=== PATIENT | male | born 1935 | race Caucasian/White ===

== ENCOUNTER → 2020-01-18 07:54 | Outpatient (CLI) | payer OTHER, SELFPAY ==
[2020-01-18 09:05] LABS: Add Manual Diff / Slide Review NO; Basophils Absolute Auto 0 /uL (0-100); Basophils Percent Auto 0.7 % (0-2); Eosinophils Absolute Auto 100 /uL (0-450); Eosinophils Percent Auto 1.8 % (2-4); Hematocrit 30.1 % (41-53); Hemoglobin 10.3 g/dL (13.5-17.5); Lymphocytes Absolute Auto 500 /uL (1100-4500); Lymphocytes Percent Auto 8.2 % (25-40); Mean Corpuscular HGB Conc 34.3 % (30-36); Mean Corpuscular Hemoglobin 31.6 PG (26-34); Monocytes Absolute Auto 600 /uL (0-900); Monocytes Percent Auto 9.2 % (3-14); Neutrophils Absolute Auto 5000 /uL (1500-7000); Neutrophils Percent Auto 80.1 % (50-75); Platelet Count 452 X10^3/uL (150-400); Red Blood Cell Count 3.27 X10^6/uL (4.5-5.9); White Blood Cell Count 6.2 X10^3/uL (4.5-11.0)
[2020-01-18 09:49] LABS: BUN Creatinine Ratio 23.8 (6-22); Blood Urea Nitrogen 29 mg/dL (9-20); Calcium 9.8 mg/dL (8.4-10.2); Carbon Dioxide 23 mmol/L (22-32); Chloride 109 mmol/L (98-107); Cholesterol 164 mg/dL (140-199); Estimated Glomerular Filt Rate 56.6 mL/min (>60); Glucose 134 mg/dL (80-110); HDL Cholesterol 31 mg/dL (40-60); HEMOLYSIS < 15 (0-50); Hemoglobin A1C% w Est Avg Glu 6.3 % (4.0-6.0); LDL Cholesterol Calculated 99 mg/dL (<100); Potassium 4.9 mmol/L (3.4-5.1); Sodium 139 mmol/L (137-145); Triglycerides 170 mg/dL (35-150)
[2020-01-18 10:19] LABS: Prostate Specific Antigen Scrn < 0.064 ng/mL (0.1-4.0)
== END ==
PROVIDERS: PCP Internal Medicine; Referring Provider Anesthesiology; Visit Provider Anesthesiology
DX: I10 Essential (primary) hypertension (principal); Z12.5 Encounter for screening for malignant neoplasm of prostate
CPT/HCPCS: 36415; 80048; 80061; 83036; 84550; 85025; G0103

== ENCOUNTER → 2020-01-21 11:01 | Outpatient (CLI) | payer OTHER, SELFPAY ==
[2020-01-21 12:34] LABS: Reticulocyte Count, Percent 1.2 % (0.87-2.60)
[2020-01-21 12:59] LABS: Erythrocyte Sedimentation Rate 62 MM/HR (0-15)
[2020-01-21 13:13] LABS: HEMOLYSIS < 15 (0-50); Iron 99 ug/dL (49-181)
[2020-01-21 13:19] LABS: Lactate Dehydrogenase 895 U/L (313-618); Uric Acid 6.9 mg/dL (3.5-8.5)
[2020-01-21 13:20] LABS: C-Reactive Protein Quant < 0.5 mg/dL (<1.0)
[2020-01-21 13:24] LABS: Percent Iron Saturation 31 % (20-50); Total Iron Binding Capacity 318 ug/dL (261-462); Transferrin 225 mg/dL (206-381)
[2020-01-21 13:48] LABS: TSH w/ Reflex to FT4 2.79 uIU/mL (0.47-4.68)
[2020-01-21 13:50] LABS: Ferritin 34 ng/mL (18-464)
[2020-01-21 14:04] LABS: Vitamin B12 210 pg/mL (239-931)
[2020-01-22 05:10] LABS: Haptoglobin 66 mg/dL (38-329)
== END ==
PROVIDERS: PCP Internal Medicine; Referring Provider Internal Medicine; Visit Provider Internal Medicine
DX: D64.9 Anemia, unspecified (principal)
CPT/HCPCS: 36415; 82607; 82728; 83010; 83540; 83550; 83615; 84443; 84550; 85045; 85651; 86140

== ENCOUNTER → 2020-01-31 09:09 | Outpatient (CLI) | payer OTHER, SELFPAY ==
--- NOTE | 2020-01-31 15:15 | DI.ECHO.S_ITS ---
Echocardiogram Report + + :Name: MINERVA PONCE Study Date: 01/31/2020 Height: 74 in : [id number] 210 lb : : Gender: Male BSA: 2.2 m2 : :: 1935 Age: 84 yrs BP: 108/56 mmHg: :Reason For Study: Conduction Disorder, RBBB : :Ordering Physician: Dr. Mix : :Keiko Performed By: Suad Cheung : + + Interpretation Summary The ejection fraction is estimated to be 50-55%. Septal motion is consistent with conduction abnormality. The right ventricle is mildly dilated. There is trace mitral regurgitation. There is mild aortic regurgitation. The ascending aorta is mildly enlarged. Procedure: A two-dimensional transthoracic echocardiogram with color flow and Doppler was performed. There is no prior echocardiogram noted for this patient. The study quality was technically adequate. The patient had a bundle branch block rhythm during the exam. The patient was in normal sinus rhythm during the exam. Left Ventricle: The left ventricle is normal in size. Left ventricular wall thickness is at the upper limits of normal. There is no ventricular septal defect visualized. The ejection fraction is estimated to be 50-55%. There are no obvious focal wall motion abnormalities noted but poor endocardial definition reduces the sensitivity for the detection of such. Septal motion is consistent with conduction abnormality. Diastolic parameters suggest a relaxation abnormality of the left ventricle, consistent with probable normal filling pressures. Right Ventricle: The right ventricle is mildly dilated. The right ventricular systolic function is normal. Atria: The left atrium is mildly dilated. Right atrial size is normal. There is no Doppler evidence for an interatrial shunt. Mitral Valve: There is mild mitral annular calcification. There is trace mitral regurgitation. Aortic Valve: The aortic valve is mildly calcified. There is no aortic valve stenosis. There is mild aortic regurgitation. Tricuspid Valve: The tricuspid valve is normal in structure and function. There is a trace or physiologic amount of tricuspid regurgitation. Right ventricular systolic pressure is estimated to be 26 mmHg plus the clinically estimated CVP which cannot be estimated on this exam. Pulmonic Valve: The pulmonic valve is not well visualized. Great Vessels: The aortic root is normal size. The ascending aorta is mildly enlarged. The aortic arch is mildly enlarged. The inferior vena cava was not visualized. Pericardium/ Pleura There is no pericardial effusion. MMode/2D Measurements & Calculations LVIDd: 4.7 cm LVOT diam: 2.5 cm LVIDs: 2.9 cm Ao root diam: 3.4 cm FS: 38.6 % asc Aorta Diam: 3.5 cm EPSS: 0.77 cm Ao Arch Diam (Prox Trans): 3.3 cm IVSd: 0.96 cm LVPWd: 1.0 cm LV cohn. diameter/BSA (cm/m^2): 2.1 LV sys. diameter/BSA (cm/m^2): 1.3 LA A2 area: 21.3 cm2 RA long axis: 5.5 cm LA A4 area: 25.1 cm2 RA area: 18.9 cm2 LA length (vol): 5.8 cm RA vol: 55.4 ml LA vol: 78.6 ml RA : 25.0 ml/m2 LA vol index: 35.4 ml/m2 RVD1 (basal): 4.6 cm RVD2 (mid): 3.9 cm TAPSE: 2.4 cm Doppler Measurements & Calculations Ao V2 max: 187.4 cm/sec LVOT Max Waldemar: 97.9 cm/sec Ao V2 mean: 141.5 cm/sec LV V1 max P.8 mmHg Ao max P.0 mmHg LV V1 VTI: 18.9 cm Ao mean P.5 mmHg TOMAS(I,D): 2.4 cm2 Ao V2 VTI: 40.6 cm TOMAS(V,D): 2.7 cm2 sev ratio: 0.46 TOMAS indexed to BSA (cm^2/m^2): 1.1 AI P1/2t: 621.3 msec AI dec slope: 194.9 cm/sec2 MV E max waldemar: 73.2 cm/sec TR max waldemar: 256.6 cm/sec MV A max waldemar: 99.8 cm/sec TR max P.3 mmHg MV E/A: 0.73 PA V2 max: 95.4 cm/sec Med Peak E' Waldemar: 5.8 cm/sec PA V2 mean: 68.5 cm/sec E/E' med: 12.6 PA mean P.1 mmHg Lat Peak E' Waldemar: 7.4 cm/sec PA Accel Time: 0.07 sec E/E' lat: 9.9 E/e' average: 11.3 MV dec time: 0.28 sec MV P1/2t: 83.4 msec MV P1/2t max waldemar: 73.3 cm/sec SV(LVOT): 95.8 ml MVA(P1/2t): 2.6 cm2 Reading Physician:03:15 PM
== END ==
PROVIDERS: PCP Internal Medicine; Referring Provider Internal Medicine; Visit Provider Internal Medicine
DX: I35.1 Nonrheumatic aortic (valve) insufficiency (principal); I77.89 Other specified disorders of arteries and arterioles; I45.10 Unspecified right bundle-branch block
CPT/HCPCS: 93306

== ENCOUNTER → 2020-03-25 13:58 | Outpatient (CLI) | payer OTHER, SELFPAY ==
[2020-03-26 19:25] LABS: COVID19 Sendout Not Detected (Not Detect)
== END ==
PROVIDERS: PCP Internal Medicine; Visit Provider Nurse Practitioner
DX: Z11.59 Encounter for screening for other viral diseases (principal)
CPT/HCPCS: 87635

== ENCOUNTER 2020-03-28 06:54 | Day surgery (SDC) | payer OTHER, SELFPAY ==
[2020-03-28] MEDS: PROPARACAINE 0.5% OPHTH SOL 2 DROPS EYE-OP (07:35)
[2020-03-28] MEDS: CATARACT EYE COMPOUND (10 DROPS/SYRINGE) 3 DROPS EYE-OP (07:40)
[2020-03-28 07:42] VITALS: BP 130/72; PULSE 86; RESP 20; TEMP 36.5; O2SAT 96
[2020-03-28 07:44] VITALS: BMI 24.9
--- NOTE | 2020-03-28 08:07 | PM.PREOP ---
Pre-operative Note Interval Note History & Physical reviewed/Exam performed by Physician: Yes Changes to H&P: No
--- NOTE | 2020-03-28 08:07 | PM.OP.1 ---
Operative Date/Time/Diagnoses Pre-op diagnosis: Nuclear cataract right eye Procedure & Clinicians Procedure: Cataract Surgery Same procedure as scheduled: Yes Surgeon: Parker Santos Anesthesia Type: MAC +/- and Sedation Operative Notes Procedure in detail: Patient brought to the operating suite. Tetracaine drops placed in the right eye. Patient was prepped and draped in sterile manner. Wire lid speculum was placed in the eye. Betadine drops were placed on the eye. This was irrigated. Lidocaine jelly was placed on the eye. A paracentesis port was created with a side-port blade. 0.1 mL 1% preservative free lidocaine was injected into the anterior chamber. The anterior chamber was deepened with viscoelastic. 2.6 mm keratome was used to create a temporal clear corneal incision. Cystotome and Utrata forceps were used to create continuous tear capsulorrhexis. Balanced salt solution was used to hydro dissect the nucleus. The phacoemulsification handpiece was inserted and the nucleus was removed using the stop and chop technique. The irrigation aspiration handpiece was inserted and the remaining cortex was removed. Anterior chamber was deepened with viscoelastic. An Berman ZCB00 intraocular lens with a power of 20.5 was injected into the capsular bag. Irrigation aspiration handpiece was inserted and the remaining viscoelastic was removed. Incision was hydrated with balanced salt solution and found to be leak free with pressure with Weck-Dolores sponges. 0.1 mL Vigamox injected anterior chamber. 0.3 mL Kenalog 10 mg was injected subconjunctivally. Lid speculum was removed. The patient left the operating room in excellent condition. Complications: none Post-operative Condition: stable Disposition: same day surgery
[2020-03-28] MEDS: MOXIFLOXACIN INJ 5 MG/ML VIAL EYE-OP (08:29)
[2020-03-28] MEDS: LIDOCAINE JELLY 2% 5 ML 1 APPLIC TOP (08:29)
[2020-03-28] MEDS: CHONDROIDTIN/SOD HYALURONATE 1.05 ML SYRINGE INTRAOCULA (08:29)
[2020-03-28] MEDS: PHENYLEPHRINE/LIDOCAINE VIAL (OR) 0.2 ML EYE-OP (08:29)
[2020-03-28] MEDS: TRIAMCINOLONE 50 MG/5 ML VIAL INJ (08:29)
[2020-03-28] MEDS: BALANCED SALT IRRIG SOLN NO.2 500 ML, EPINEPHrine 1 MG IRR (08:30)
[2020-03-28] MEDS: TETRACAINE 0.5% OPHTH DROPS 4 ML 2 DROPS EYE-OP (08:30)
[2020-03-28 08:43] VITALS: BP 105/60; PULSE 79; RESP 20; TEMP 36.3; O2SAT 98
== END 2020-03-28 08:55 | disposition home or self-care (01) ==
LOC: OR 06:57
PROVIDERS: PCP Internal Medicine; Referring Provider Internal Medicine; Visit Provider Ophthalmology
PROC: (CPT 66984; principal; 2020-03-28 08:15)
DX: H25.11 Age-related nuclear cataract, right eye (principal); E11.9 Type 2 diabetes mellitus without complications; I10 Essential (primary) hypertension; Z79.84 Long term (current) use of oral hypoglycemic drugs
CPT/HCPCS: 66984; J0171; J2250; J3301

== ENCOUNTER → 2020-04-15 08:43 | Outpatient (CLI) | payer OTHER, SELFPAY ==
[2020-04-17 12:34] LABS: COVID19 Sendout Not Detected (Not Detect)
== END ==
PROVIDERS: PCP Internal Medicine; Visit Provider Nurse Practitioner
DX: Z11.59 Encounter for screening for other viral diseases (principal)
CPT/HCPCS: 87635

== ENCOUNTER 2020-04-18 07:33 | Day surgery (SDC) | payer OTHER, SELFPAY ==
[2020-04-18] MEDS: PROPARACAINE 0.5% OPHTH SOL 2 DROPS EYE-OP (07:48)
[2020-04-18 07:51] VITALS: BP 139/73; PULSE 80; RESP 15; TEMP 36.2; O2SAT 97
[2020-04-18 07:55] VITALS: BMI 25.4
[2020-04-18] MEDS: CATARACT EYE COMPOUND (10 DROPS/SYRINGE) 3 DROPS EYE-OP (07:55)
--- NOTE | 2020-04-18 09:20 | P.OP_ITS ---
Operative Date/Time/Diagnoses Pre-op diagnosis: Nuclear Cataract Left eye Post-op diagnosis: same Procedure & Clinicians Same procedure as scheduled: Yes Surgeon: Parker Santos Anesthesia Type: MAC +/- and Sedation Operative Notes Procedure in detail: Patient brought to the operating suite. Tetracaine drops placed in the left eye. Patient was prepped and draped in sterile manner. Wire lid speculum was placed in the eye. Betadine drops were placed on the eye. This was irrigated. Lidocaine jelly was placed on the eye. A paracentesis port was created with a side-port blade. 0.1 mL 1% preservative free lidocaine was injected into the anterior chamber. The anterior chamber was deepened with viscoelastic. 2.6 mm keratome was used to create a temporal clear corneal incision. Cystotome and Utrata forceps were used to create continuous tear capsulorrhexis. Balanced salt solution was used to hydro dissect the nucleus. The phacoemulsification handpiece was inserted and the nucleus was removed using the stop and chop technique. The irrigation aspiration handpiece was inserted and the remaining cortex was removed. Anterior chamber was deepened with viscoe lastic. An Berman ZCB00 intraocular lens with a power of 21.0 was injected into the capsular bag. Irrigation aspiration handpiece was inserted and the remaining viscoelastic was removed. Incision was hydrated with balanced salt solution and found to be leak free with pressure with Weck-Dolores sponges. 0.1 mL Vigamox injected anterior chamber. 0.3 mL Kenalog 10 mg was injected subconjunctivally. Lid speculum was removed. The patient left the operating room in excellent condition. Complications: none Post-operative Condition: stable Disposition: same day surgery
--- NOTE | 2020-04-18 09:20 | PM.PREOP ---
Pre-operative Note Interval Note History & Physical reviewed/Exam performed by Physician: Yes Changes to H&P: No
[2020-04-18] MEDS: CHONDROIDTIN/SOD HYALURONATE 1.05 ML SYRINGE INTRAOCULA (09:42)
[2020-04-18] MEDS: LIDOCAINE JELLY 2% 5 ML 1 APPLIC TOP (09:42)
[2020-04-18] MEDS: PHENYLEPHRINE/LIDOCAINE VIAL (OR) 0.2 ML EYE-OP (09:42)
[2020-04-18] MEDS: MOXIFLOXACIN INJ 5 MG/ML VIAL EYE-OP (09:42)
[2020-04-18] MEDS: TETRACAINE 0.5% OPHTH DROPS 4 ML 2 DROPS EYE-OP (09:43)
[2020-04-18] MEDS: TRIAMCINOLONE 50 MG/5 ML VIAL INJ (09:43)
[2020-04-18] MEDS: BALANCED SALT IRRIG SOLN NO.2 500 ML, EPINEPHrine 1 MG IRR (09:43)
[2020-04-18 10:00] VITALS: BP 115/73; PULSE 81; RESP 12; TEMP 36.3; O2SAT 96
== END 2020-04-18 10:09 | disposition home or self-care (01) ==
PROVIDERS: PCP Internal Medicine; Referring Provider Ophthalmology; Visit Provider Ophthalmology
PROC: (CPT 66984; principal; 2020-04-18 09:15)
DX: H25.12 Age-related nuclear cataract, left eye (principal); E11.9 Type 2 diabetes mellitus without complications; Z79.84 Long term (current) use of oral hypoglycemic drugs; I10 Essential (primary) hypertension
CPT/HCPCS: 66984; J0171; J2250; J3301

== ENCOUNTER → 2020-04-21 09:25 | Outpatient (CLI) | payer OTHER, SELFPAY ==
[2020-04-21 10:18] LABS: Add Manual Diff / Slide Review NO; Basophils Absolute Auto 100 /uL (0-100); Basophils Percent Auto 0.8 % (0-2); Eosinophils Absolute Auto 200 /uL (0-450); Eosinophils Percent Auto 2.9 % (2-4); Hematocrit 29.8 % (41-53); Hemoglobin 10.2 g/dL (13.5-17.5); Lymphocytes Absolute Auto 800 /uL (1100-4500); Lymphocytes Percent Auto 12.1 % (25-40); Mean Corpuscular HGB Conc 34.1 % (30-36); Mean Corpuscular Hemoglobin 31.3 PG (26-34); Mean Corpuscular Volume 91.8 fL (80-100); Monocytes Absolute Auto 1000 /uL (0-900); Neutrophils Absolute Auto 4800 /uL (1500-7000); Neutrophils Percent Auto 70.2 % (50-75); Platelet Count 416 X10^3/uL (150-400); Red Blood Cell Count 3.25 X10^6/uL (4.5-5.9); Red Cell Distribution Width 19.7 % (11.6-14.8); White Blood Cell Count 6.9 X10^3/uL (4.5-11.0)
[2020-04-21 10:25] LABS: Hemoglobin A1C% w Est Avg Glu 6.7 % (4.0-6.0)
[2020-04-21 10:49] LABS: Alanine Aminotransferase 17 IU/L (<50); Albumin 3.7 g/dL (3.5-5.0); Albumin Globulin Ratio 1.2 (1.0-2.8); Alkaline Phosphatase 72 U/L (38-126); Aspartate Aminotransferase 21 IU/L (17-59); BUN Creatinine Ratio 23.7 (6-22); Bilirubin Total 0.3 mg/dL (0.2-1.3); Blood Urea Nitrogen 31 mg/dL (9-20); Calcium 9.9 mg/dL (8.4-10.2); Carbon Dioxide 23 mmol/L (22-32); Chloride 110 mmol/L (98-107); Estimated Glomerular Filt Rate 52.1 mL/min (>60); Glucose 126 mg/dL (80-110); HEMOLYSIS < 15 (0-50); Sodium 141 mmol/L (137-145); Total Protein 6.7 g/dL (6.3-8.2)
[2020-04-21 10:53] LABS: C-Reactive Protein Quant < 0.5 mg/dL (<1.0); Potassium 5.4 mmol/L (3.4-5.1)
[2020-04-21 10:59] LABS: Erythrocyte Sedimentation Rate 49 MM/HR (0-15)
[2020-04-21 11:36] LABS: Vitamin B12 272 pg/mL (239-931)
== END ==
PROVIDERS: PCP Internal Medicine; Referring Provider Internal Medicine; Visit Provider Internal Medicine
DX: D64.9 Anemia, unspecified (principal); E53.8 Deficiency of other specified B group vitamins; E11.9 Type 2 diabetes mellitus without complications; I10 Essential (primary) hypertension
CPT/HCPCS: 36415; 80053; 82607; 83036; 85025; 85651; 86140

== ENCOUNTER → 2020-05-16 12:42 | Outpatient (CLI) | payer OTHER, SELFPAY ==
--- NOTE | 2020-05-16 12:45 | DI.RAD.S_ITS ---
PROCEDURE: XR CHEST 2V INDICATIONS: Anemia, anorexia, bibasilar rales on lung exam TECHNIQUE: 2 views of the chest were acquired. COMPARISON: None. FINDINGS: Surgical changes and devices: None. Lungs and pleura: Mild hazy opacity at the left lung base. No pleural effusions or pneumothorax. Mediastinum: Mediastinal contours are normal. Heart size is within normal limits. Bones and chest wall: No suspicious bony abnormalities. Soft tissues appear unremarkable. IMPRESSION: Mild hazy opacity at the left lung base is appreciated. This could be due to atelectasis or pneumonia. Dictated by: Ren Garcia M.D. on 05/16/2020 at 15:07 Approved by: Ren Garcia M.D. on 05/16/2020 at 15:08
[2020-05-16 13:38] LABS: Hematocrit 29.4 % (41-53); Hemoglobin 9.9 g/dL (13.5-17.5); Mean Corpuscular HGB Conc 33.8 % (30-36); Mean Corpuscular Hemoglobin 30.9 PG (26-34); Mean Corpuscular Volume 91.4 fL (80-100); Platelet Count 362 X10^3/uL (150-400); Red Blood Cell Count 3.22 X10^6/uL (4.5-5.9); Red Cell Distribution Width 18.8 % (11.6-14.8); White Blood Cell Count 5.5 X10^3/uL (4.5-11.0)
[2020-05-16 13:50] LABS: Alanine Aminotransferase 17 IU/L (<50); Albumin Globulin Ratio 1.3 (1.0-2.8); Alkaline Phosphatase 66 U/L (38-126); Aspartate Aminotransferase 23 IU/L (17-59); Bilirubin Total 0.3 mg/dL (0.2-1.3); Blood Urea Nitrogen 33 mg/dL (9-20); Calcium 9.7 mg/dL (8.4-10.2); Carbon Dioxide 25 mmol/L (22-32); Chloride 108 mmol/L (98-107); Estimated Glomerular Filt Rate 51.7 mL/min (>60); Globulin 3.2 g/dL (1.7-4.1); Glucose 131 mg/dL (80-110); HEMOLYSIS < 15 (0-50); Potassium 5.2 mmol/L (3.4-5.1); Sodium 138 mmol/L (137-145); Total Protein 7.2 g/dL (6.3-8.2)
[2020-05-16 13:54] LABS: HEMOLYSIS < 15 (0-50); Iron 110 ug/dL (49-181)
[2020-05-16 13:59] LABS: Neutrophils Absolute Manual 3960 /uL (3000-5900); Nucleated Red Blood Cells 1 #/Diff; Total Cells Counted 100
[2020-05-16 14:00] LABS: Anisocytosis 1+; Poikilocytosis 2+
[2020-05-16 14:01] LABS: Ovalocytes 2+
[2020-05-16 14:02] LABS: Platelet Estimate Adequate on smear
[2020-05-16 14:05] LABS: Percent Iron Saturation 35 % (20-50); Total Iron Binding Capacity 316 ug/dL (261-462); Transferrin 231 mg/dL (206-381)
[2020-05-16 14:25] LABS: Ferritin 47 ng/mL (18-464)
[2020-05-16 14:38] LABS: Vitamin B12 277 pg/mL (239-931)
== END ==
PROVIDERS: PCP Internal Medicine; Referring Provider Internal Medicine; Visit Provider Internal Medicine
DX: D64.9 Anemia, unspecified (principal); R63.0 Anorexia; R09.89 Other specified symptoms and signs involving the circulatory and respiratory systems
CPT/HCPCS: 36415; 71046; 80053; 82607; 82728; 83540; 83550; 85025

== ENCOUNTER → 2020-06-06 09:40 | Oncology outpatient (ONC) | payer OTHER, SELFPAY ==
[2020-05-16 12:04] VITALS: BP 128/73; PULSE 78; RESP 18; O2SAT 98
--- NOTE | 2020-05-16 13:00 | P.CONONC_ITS ---
History of Present Illness - Data of Consult Primary Care Provider: Dominguez Aden MD - Consult Narrative Narrative: Jesus Haque is a 84 year old male who is referred for further evaluation of anemia. Review of his records shows that he had labs in January of 2020 showing hemoglobin of 10.3 hematocrit 30.1 platelets 452 1000 white count 6200 with an elevated RDW and normal red cell indices. Reticulocyte count was 1.2%. Haptoglobin was normal at 66. Sedimentation rate was 62. Creatinine 1.2 to. PSA was undetectable. Vitamin B12 was 210 with a normal TSH. He had a ferritin of 34 with an iron saturation of 31% and elevated of LDH. He was started on vitamin B12 1 mg daily. Follow-up testing on April 21 showed hemoglobin of 10.2 hematocrit 29.8 with platelets [id number] white count 6900 with normal red cell indices, elevated RDW, creatinine 1.31, sedimentation rate 49 a vitamin B12 level of 272. Because of his persistent anemia he is referred for hematology consultation. Ms. cain is generally feeling good. He states his appetite has been diminished for number of years. He lost 50 lb 20 years ago but has been stable since then. He has not noticed any new lumps or bumps, pain, cough, shortness of breath, nausea, vomiting, constipation, diarrhea, bleeding from anywhere, fever, chills, sweats, trouble swallowing, mouth sores, malaise or fatigue. All other systems are negative. New Past medical history 1. Current medications include dutasteride 0.5 mg daily, glimepiride 2 mg twice a day, metformin 850 mg twice a day, metoprolol 50 mg daily, repaglinide 1 mg twice a day, tamsulosin 0.4 mg daily, vitamin B12 1 mg daily, vitamin-C and vitamin-D. 2. No known drug allergies 3. There is no family history of anemia, blood disorders or cancer 4. Adult onset diabetes diagnosed in 1994 5. High blood pressure 6. He denies rheumatic fever, tuberculosis, heart attacks, strokes, stomach ulcers, pneumonia or any kind of cancer 7. He has had no surgeries 8. 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 He lives alone. His daughter is nearby accompanies him today. He is not a smoker or drinker. He is active but does not have regular exercise program. 9. He has never been hospitalized CC: Jarred Guallpa MD Home Medications and Allergies Home Medications Medication Instructions Recorded Confirmed Type dutasteride 0.5 mg capsule 0.5 mg PO DAILY #90 cap 01/21/20 05/16/20 Rx tamsulosin 0.4 mg capsule 0.4 mg PO DAILY #90 cap 01/21/20 05/16/20 Rx glimepiride 2 mg tablet 2 mg PO BID #180 tab 01/31/20 05/16/20 Rx metformin 850 mg tablet 850 mg PO BID #180 tab 01/31/20 05/16/20 Rx metoprolol succinate 50 mg 50 mg PO DAILY #90 tab 04/21/20 05/16/20 Rx tablet,extended release 24 hr repaglinide 1 mg tablet 1 mg PO BID #180 tab 04/21/20 05/16/20 Rx Allergies Allergy/AdvReac Type Severity Reaction Status Date / Time No Known Drug Allergies Allergy Verified 04/21/20 09:03 Medical History - Medical, Surgical, Family History Medical History: Medical History (Last Updated 02/18/20 @ 09:16 by Dominguez Aden MD) Anemia B12 deficiency BPH w urinary obs/LUTS Cataracts, bilateral Diabetes type 2, controlled Onset Date: ~1985 Essential hypertension H/O: gout Right bundle branch block Surgical History: Surgical History (Last Updated 04/21/20 @ 10:05 by Dominguez Aden MD) Status post cataract extraction Onset Date: ~04/2020 Family History: Family History (Last Reviewed 01/21/20 @ 10:53 by Dominguez Aden MD) Father Diabetes mellitus Mother Diabetes mellitus Hypertension - Social History Smoking Status: Never smoker Exam Vital signs: Vital Signs Pulse Resp BP Pulse Ox 05/16/20 12:04 78 18 128/73 98 Intake and Output 05/15/20 05/16/20 05/16/20 23:59 07:59 15:59 Other: Weight 81 kg Patient Weight 05/16/20 23:59 Weight 81 kg Narrative: He was awake, alert and oriented x3. He was fully ambulatory and in no acute distress. There was no palpable lymphadenopathy in the cervical, supraclavicular, axillary, inguinal or femoral regions. Lungs showed bibasilar rales that persisted after deep breathing and coughing. There were no wheezes. There was no evidence of pleural effusion on exam. Heart showed a regular rate and rhythm without murmur, gallop or rub. The abdomen is soft and nontender without any palpable hepatosplenomegaly or masses. There was trace pedal edema bilaterally. Assessment and Plan (1) Anemia Status: Acute (2) B12 deficiency Status: Acute Mr. Haque has a persistent normochromic normocytic anemia with elevated RDW. He has had an minimal response to oral vitamin B12 with history of low normal vitamin B12. His ferritin was also low normal. He has bibasilar rales on lung exam but no other findings to suggest an underlying systemic illness. I explained that we would want to do additional testing. We will have labs done today to recheck his vitamin B12 level, methylmalonic acid, and iron studies. Will get a chest x-ray and will also arrange testing for fecal occult blood. He will return after these for review of results. If indicated, we could supplement him empirically with iron. We had a good response to this would want to consider a GI evaluation for potential sources of blood loss. I explained all this to him and his daughter and he was agreeable to proceed. I personally spent 32 minutes in today's [id number] visit with greater than 50% of the time spent in counseling regarding the issues outlined above. Impression: 1. Normochromic normocytic anemia documented in January of 2020 with an elevated RDW, low normal vitamin B12 and low normal ferritin, stable on follow-up testing in April of 2020 2. Elevated sedimentation rate 3. Bibasilar rales on lung exam otherwise negative history of physical 4. Mild renal insufficiency Recommendations: 1. Repeat vitamin B12 along with methylmalonic acid level 2. Increase vitamin B12 to 2 mg daily 3. Recheck iron studies 4. Chest x-ray 5. FIT 6. Return after the studies for follow-up and further plans to be made at that time.
[2020-06-01 08:12] LABS: Fecal Immunochemical Test Negative (Negative)
[2020-06-06 10:14] VITALS: BP 105/54; PULSE 88; RESP 16; O2SAT 97
--- NOTE | 2020-06-06 10:31 | ONC.PN ---
PN -Subjective Interval history: Jesus Haque is a 84 year old male who presents for follow-up evaluation of anemia. Review of his records shows that he had labs in January of 2020 showing hemoglobin of 10.3 hematocrit 30.1 platelets 452 1000 white count 6200 with an elevated RDW and normal red cell indices. Reticulocyte count was 1.2%. Haptoglobin was normal at 66. Sedimentation rate was 62. Creatinine 1.2 to. PSA was undetectable. Vitamin B12 was 210 with a normal TSH. He had a ferritin of 34 with an iron saturation of 31% and elevated of LDH. He was started on vitamin B12 1 mg daily. Follow-up testing on April 21 showed hemoglobin of 10.2 hematocrit 29.8 with platelets [id number] white count 6900 with normal red cell indices, elevated RDW, creatinine 1.31, sedimentation rate 49 a vitamin B12 level of 272. Because of his persistent anemia he was seen in consultation for anemia about 3 weeks ago. He had labs done at that time that included a creatinine of 1.32, vitamin B12 level of 277, hemoglobin 9.9 hematocrit 29.4 platelets [id number] white count 5500. Ferritin was 47 with an iron saturation of 35%. Stool for occult blood was negative. Previously a haptoglobin had been normal with reticulocyte counts of 1.2% and elevated sedimentation rate. He also had a chest x-ray done that showed mild opacity in the left base, atelectasis versus infiltrate. Of note is that he had no respiratory symptoms at that time and continues to have none today. He comes today to review results. Ms. cain is generally feeling good. He states his appetite has been diminished for number of years. He lost 50 lb 20 years ago but has been stable since then. He has not noticed any new lumps or bumps, pain, cough, shortness of breath, nausea, vomiting, constipation, diarrhea, bleeding from anywhere, fever, chills, sweats, trouble swallowing, mouth sores, malaise or fatigue. All other systems are negative. New Past medical history 1. Current medications include dutasteride 0.5 mg daily, glimepiride 2 mg twice a day, metformin 850 mg twice a day, metoprolol 50 mg daily, repaglinide 1 mg twice a day, tamsulosin 0.4 mg daily, vitamin B12 1 mg daily, vitamin-C and vitamin-D. 2. No known drug allergies 3. There is no family history of anemia, blood disorders or cancer 4. Adult onset diabetes diagnosed in 1994 5. High blood pressure 6. He denies rheumatic fever, tuberculosis, heart attacks, strokes, stomach ulcers, pneumonia or any kind of cancer 7. He has had no surgeries 8. 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 He lives alone. His daughter is nearby accompanies him today. He is not a smoker or drinker. He is active but does not have regular exercise program. 9. He has never been hospitalized Home Medications and Allergies Home Medications Medication Instructions Recorded Confirmed Type dutasteride 0.5 mg capsule 0.5 mg PO DAILY #90 cap 01/21/20 06/06/20 Rx tamsulosin 0.4 mg capsule 0.4 mg PO DAILY #90 cap 01/21/20 06/06/20 Rx glimepiride 2 mg tablet 2 mg PO BID #180 tab 01/31/20 06/06/20 Rx metformin 850 mg tablet 850 mg PO BID #180 tab 01/31/20 06/06/20 Rx metoprolol succinate 50 mg 50 mg PO DAILY #90 tab 04/21/20 06/06/20 Rx tablet,extended release 24 hr repaglinide 1 mg tablet 1 mg PO BID #180 tab 04/21/20 06/06/20 Rx Allergies Allergy/AdvReac Type Severity Reaction Status Date / Time No Known Drug Allergies Allergy Verified 04/21/20 09:03 Exam Vital signs: Vital Signs Pulse Resp BP Pulse Ox 06/06/20 10:14 88 16 105/54 L 97 Intake and Output 06/05/20 06/06/20 06/06/20 23:59 07:59 15:59 Other: Weight 93 kg Patient Weight 06/06/20 23:59 Weight 93 kg Narrative: He was awake, alert and oriented x3. He was in a wheelchair but in no acute distress. Results - Labs Laboratory Last Values FIT Diagnosis Negative (Negative) 05/31/20 10:15 Assessment and Plan (1) Anemia Status: Acute (2) B12 deficiency Status: Acute Mr. Haque has a persistent normochromic normocytic anemia with elevated RDW. He likely has a component of anemia of chronic renal insufficiency. He also likely has a component of anemia of chronic inflammation given his elevated markers of inflammation. He is on appropriate vitamin B12 supplementation and his iron studies are in the low normal range but normal. Fecal occult blood testing was negative. We discussed options from here. We could do further testing. This would take the form of a bone marrow examination. We discussed logistics and rationale for a bone marrow test. It could be done as an outpatient. We could also observe him. He was very comfortable with observation and I think this is reasonable given the fact that he has been relatively stable over the last 4 months, has normal white cells and platelets, and feels fine. Accordingly, will plan to recheck his lab work in about 2 months. If he stays stable will continue to observe him. If he worsens we can consider a bone marrow examination at that time. Impression: 1. Normochromic normocytic anemia documented in January of 2020 with an elevated RDW, low normal vitamin B12 and low normal ferritin, stable on follow-up testing in April of 2020 2. Elevated sedimentation rate 3. Mild renal insufficiency 4. Screening labs have been unrevealing Recommendations: 1. Options were reviewed with the patient's daughter in detail including observation and a bone marrow examination 2. Patient was very comfortable with observation I think this represents an informed decision on his part 3. Return in 2 months for follow-up with labs prior
--- NOTE | 2020-06-06 10:44 | ONC.SCHED ---
Tried calling patient to give them their follow up apt. but their VM is full. I will try again today later.
--- NOTE | 2020-06-06 10:49 | ONC.SCHED ---
I was able to reach son-in-law as he is on the auth to discuss to give him the apt. time. The patient's phone number says mailbox full and unable to leave ms. Son in law will give the msg. to the patient and daughter.
== END ==
PROVIDERS: PCP Internal Medicine; Referring Provider Internal Medicine; Visit Provider Internal Medicine
DX: D64.9 Anemia, unspecified (principal); E53.8 Deficiency of other specified B group vitamins; N28.9 Disorder of kidney and ureter, unspecified; E11.9 Type 2 diabetes mellitus without complications; I10 Essential (primary) hypertension; Z79.84 Long term (current) use of oral hypoglycemic drugs
CPT/HCPCS: 36415; 71046; 80053; 82274; 82607; 82728; 83540; 83550; 85025; 99203; 99213

== ENCOUNTER → 2020-09-11 12:49 | Outpatient (CLI) | payer OTHER, SELFPAY ==
[2020-09-11 13:43] LABS: Hematocrit 28.5 % (41-53); Hemoglobin 9.7 g/dL (13.5-17.5)
[2020-09-11 13:54] LABS: Hemoglobin A1C% w Est Avg Glu 6.9 % (4.0-6.0)
[2020-09-11 14:05] LABS: Erythrocyte Sedimentation Rate 54 MM/HR (0-15)
[2020-09-11 15:02] LABS: Vitamin B12 297 pg/mL (239-931)
== END ==
PROVIDERS: PCP Internal Medicine; Referring Provider Anesthesiology; Visit Provider Anesthesiology
DX: E11.9 Type 2 diabetes mellitus without complications (principal)
CPT/HCPCS: 36415; 82607; 83036; 85014; 85018; 85651

== ENCOUNTER → 2021-07-03 15:49 | Outpatient (CLI) | payer OTHER, SELFPAY ==
[2021-07-03 17:29] LABS: Alanine Aminotransferase 17 IU/L (<50); Albumin 3.9 g/dL (3.5-5.0); Albumin Globulin Ratio 1.3 (1.0-2.8); Alkaline Phosphatase 62 U/L (38-126); Aspartate Aminotransferase 24 IU/L (17-59); BUN Creatinine Ratio 20.7 (6-22); Bilirubin Total 0.3 mg/dL (0.2-1.3); Blood Urea Nitrogen 36 mg/dL (9-20); Calcium 9.6 mg/dL (8.4-10.2); Carbon Dioxide 27 mmol/L (22-32); Chloride 103 mmol/L (98-107); Estimated Glomerular Filt Rate 37.5 mL/min (>60); Globulin 2.9 g/dL (1.7-4.1); Glucose 156 mg/dL (80-110); HEMOLYSIS < 15 (0-50); Potassium 4.9 mmol/L (3.4-5.1); Sodium 139 mmol/L (137-145); Total Protein 6.8 g/dL (6.3-8.2)
== END ==
PROVIDERS: PCP Internal Medicine; Referring Provider Internal Medicine; Visit Provider Internal Medicine
DX: I10 Essential (primary) hypertension (principal); E11.9 Type 2 diabetes mellitus without complications; D64.9 Anemia, unspecified
CPT/HCPCS: 36415; 80053; 83036

== ENCOUNTER 2022-03-02 17:16 | Emergency (ER) | payer OTHER, SELFPAY ==
[2022-03-02] VITALS (15 sets, daily range): BP systolic 155–183; BP diastolic 76–100; PULSE 98–121; RESP 19–29; TEMP 37.4; O2SAT 99–100
--- NOTE | 2022-03-02 17:18 | DI.CT.S_ITS ---
PROCEDURE: CT STROKE INDICATIONS: Left sided weakness, dysarthria and facial droop. Hypoglyce TECHNIQUE: Noncontrast 4.5 mm thick angled axial sections acquired from the foramen magnum to the vertex, with coronal reformats. For radiation dose reduction, the following was used: automated exposure control, adjustment of mA and/or kV according to patient size. COMPARISON: None. FINDINGS: Image quality: Degraded by motion CSF spaces: Basal cisterns are patent. No extra-axial fluid collections. Ventricles are normal in size and shape. Moderate volume loss. Brain: No midline shift. No intracranial masses or hemorrhage. Periventricular white matter hypoattenuation, likely chronic small vessel disease. There is some borges-white blurring in the right middle fossa, which may be artifact. Skull and face: Calvarium and visualized facial bones are intact, without suspicious lesions. Sinuses: Prior sinus surgery, with opacification versus mass of the left maxillary sinus. IMPRESSION: Images are degraded by motion. No intraventricular hemorrhage. There is some borges-white blurring in the right middle fossa, which may be artifact. Consider CTA and/or MRI for further evaluation. This study fulfills neurological imaging criteria for inclusion or exclusion of acute stroke therapies based on available published neurological imaging guidelines. Dictated by: Janes Mejia M.D. on 03/02/2022 at 17:51 Approved by: Janes Mejia M.D. on 03/02/2022 at 17:55
--- NOTE | 2022-03-02 17:18 | DI.RAD.S_ITS ---
PROCEDURE: XR CHEST 1V INDICATIONS: weakness left TECHNIQUE: One view of the chest was acquired. COMPARISON: [facility], CR, XR CHEST 2V, 05/16/2020, 12:55. FINDINGS: Surgical changes and devices: None. Lungs and pleura: Lung volumes are lower. Left greater than right mid and lower lung opacities. No pleural effusion. Mediastinum: Mediastinal contours appear normal. Heart size is normal. Bones and chest wall: No suspicious bony lesions. Overlying soft tissues appear unremarkable. IMPRESSION: Left greater than right mid and lower lung opacities could represent infectious or inflammatory airspace disease. There may be superimposed atelectasis. Consider follow-up imaging to reassess for resolution. Dictated by: Janes Mejia M.D. on 03/02/2022 at 18:37 Approved by: Janes Mejia M.D. on 03/02/2022 at 18:38
--- NOTE | 2022-03-02 17:18 | DI.CT.S_ITS ---
PROCEDURE: CT ANGIO HEAD AND NECK INDICATIONS: Left sided weakness, dysarthria and facial droop. Hypoglyce TECHNIQUE: After the administration of intravenous contrast, 1 mm thick sections acquired from the aortic arch through the Purvis of Maria. Post-contrast 4.5 mm thick sections then re-acquired from the foramen magnum to the vertex. 3-dimensional [id number] (MIP) and/or volume rendering reformats were acquired of the central intracranial vasculature and neck separately. For radiation dose reduction, the following was used: automated exposure control, adjustment of mA and/or kV according to patient size. COMPARISON: None. FINDINGS: Image quality: Excellent. HEAD CT ANGIOGRAPHY: Anterior circulation: Mild cavernous carotid atherosclerotic calcifications. The flow within the paired anterior cerebral arteries is normal and symmetric. The flow within the middle cerebral arteries is normal and symmetric. The anterior communicating artery is seen. No aneurysms are seen. Posterior circulation: Visualized portions of the vertebral arteries demonstrate normal caliber, and join to form a normal appearing basilar artery. Mild left vertebral atherosclerotic calcifications. Flow within the posterior cerebral arteries is normal and symmetric. No aneurysms are seen. supply of the left [employer]. Dural venous sinuses are grossly patent. NECK CT ANGIOGRAPHY: Carotid system: The great vessels demonstrate a conventional anatomy as they arise from the aortic arch. The origins of the common carotid arteries appear patent. The common carotid arteries demonstrate normal caliber and courses. The bifurcation regions are both widely patent. The internal carotid arteries demonstrate normal calibers and courses. Posterior circulation: Mild narrowing of the bilateral vertebral artery origins. The more superior extracranial portions of both vertebral arteries also demonstrate normal courses and calibers. They join to form a normal appearing basilar artery. 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 Prior sinus surgery. Maxillary hyperostosis. Bones: No suspicious bony lesions. Slva-[id number]-[id number] spondylosis. Straightening normal cervical lordosis. IMPRESSION: No stenosis common large vessel occlusion, dissection, or aneurysm identified. Consider MRI if ischemia is still a concern. 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 There is prior sinus surgery. Correlate with history and direct visualization. Any quantitative measurements of stenosis were performed using NASCET criteria. Dictated by: Janes Mejia M.D. on 03/02/2022 at 18:22 Approved by: Janes Mejia M.D. on 03/02/2022 at 18:30
--- NOTE | 2022-03-02 17:19 | ED.NEUROSD ---
HPI - Neuro Symptoms/Deficit <Alisson Cortes, - Last Filed: 03/07/22 21:20> General Chief Complaint: Weakness Stated Complaint: L side weakness, L side facial droop Time Seen by Provider: 03/02/22 17:18 Source: EMS Mode of arrival: EMS Limitations: language barrier (daughter at bedside interpreting. Language line offered.) History of Present Illness HPI Narrative: This is an 86-year-old male with known diabetes since age 47, hypertension on oral medications but no insulin. Patient today was his normal self laid down for nap and onset time is at the latest about 1:00 p.m.. Patient awoke from his nap with left-sided facial weakness, significant aphasia, left-sided upper and lower extremity weakness without any ability to move. EMS contacted with the patient they noted his glucose was 39 he was given dextrose and his deficits resolved. Patient is mainly Vietnamese speaking. He currently lives with family patient does not have any known cardiac history, no prior strokes. He has had episodes in the past with low glucose secondary to very tight glucose control but has not had any for several years. No known new medication changes. Patient has been on stable doses of his medications. Patient at this time through interpretation with his family denies headache, no chest pain or shortness of breath, no nausea or vomiting, no acute vision changes, does not feel weak or have any difficulty with movement currently, denies any diarrhea, constipation or urinary symptoms. Patient has had cataract surgery but no other surgeries. No known drug allergies. No tobacco, occasional social alcohol, no illicit. His primary care is Dr. Aden. Related Data Previous Rx's Medication Instructions Recorded glimepiride 2 mg tablet 2 mg PO BID #180 tabs 07/03/21 metformin 850 mg tablet 850 mg PO BID #180 tabs 07/03/21 metoprolol succinate 50 mg 50 mg PO DAILY #90 tabs 07/03/21 tablet,extended release 24 hr repaglinide 1 mg tablet 1 mg PO BID #180 tabs 07/03/21 trazodone 50 mg tablet 100 mg PO BEDTIME #180 tabs 01/01/22 dutasteride 0.5 mg capsule 0.5 mg PO DAILY #90 caps 03/04/22 tamsulosin 0.4 mg capsule 0.4 mg PO DAILY #90 caps 03/04/22 Allergies Allergy/AdvReac Type Severity Reaction Status Date / Time No Known Drug Allergies Allergy Verified 03/02/22 17:23 Review of Systems <Alisson Cortes DO - Last Filed: 03/07/22 21:20> Review of Systems ROS Unobtainable: All systems reviewed & are unremarkable except as noted in HPI and below Patient History <Alisson Cortes DO - Last Filed: 03/07/22 21:20> Medical History Anemia BPH w urinary obs/LUTS Cataracts, bilateral Diabetes type 2, controlled (~1985) Essential hypertension H/O: gout Right bundle branch block Surgical History Status post cataract extraction (~04/2020) Family History Father Diabetes mellitus Mother Diabetes mellitus Hypertension Social History household members: none Smoking Status: Never smoker alcohol intake: former Smoking Status: Never smoker Substance Use Type: does not use Exam <Alisson Cortes DO - Last Filed: 03/07/22 21:20> Narrative Exam Narrative: GEN: well nourished, well appearing male, alert and oriented, patient appears to be in mild distress. HEENT: Atraumatic, pupils are equal round reactive to light, extraocular movements are intact, nares are clear, TMs are clear with no fluid, there is no conjunctival pallor. Throat is clear without any exudates, erythema, tonsillar enlargement or uvular deviation, no facial droop. HEART: Regular rate and rhythm without murmur, clicks, rubs. Pulses are equal in upper and lower extremities LUNGS:Lungs clear to auscultation, no wheezes, rales, crackles, chest moves symmetrically ABD:bowel sounds normal, soft, non-tender, no guarding, rebound, rigidity, no masses noted, no hepatosplenomegaly :No CVA tenderness MSCL: Non-tender, no muscle atrophy, muscles strength 5/5 upper and lower extremities, full range of motion, normal gait NEURO:CN 2-12 intact, sensation normal, reflexes 2/4 upper and lower extremities. finger nose finger test normal, heel jacobo test normal SKIN: No rash, erythema or other skin changes Initial Vital Signs Initial Vital Signs: Vital Signs Temperature 99.3 F 03/02/22 17:16 Pulse Rate 110 H 03/02/22 17:16 Respiratory Rate 20 03/02/22 17:16 Blood Pressure 175/100 H 03/02/22 17:16 Pulse Oximetry 100 03/02/22 17:16 Oxygen Delivery Method 03/02/22 17:16 <George Mayers MD - Last Filed: 03/03/22 06:45> Initial Vital Signs Initial Vital Signs: Vital Signs Temperature 99.3 F 03/02/22 17:16 Pulse Rate 110 H 03/02/22 17:16 Respiratory Rate 03/02/22 17:16 Blood Pressure 175/100 H 03/02/22 17:16 Pulse Oximetry 100 03/02/22 17:16 Oxygen Delivery Method 03/02/22 17:16 Scores <Alisson Cortes DO - Last Filed: 03/07/22 21:20> NIH Stroke Scale Level of Conciousness: Alert, keenly responsive Ask month/age: Answers both questions correctly. Open/close eyes, close hand: Performs both tasks correctly Best gaze horizontal: Normal Visual cabral: No visual loss Facial palsy: Normal symetrical movement Left arm drift: No drift for full 10 sec Right arm drift: No drift for full 10 sec Left leg drift: No drift for full 5 sec Right leg drift: No drift for full 5 sec Limb ataxia: Absent Sensory on face/arms/legs: Normal, no sensory loss Best language: No aphasia, normal Dysarthria: Normal Extinction or inattention: No abnormality Total NIH Stroke scale score: 0 <George Mayers MD - Last Filed: 03/03/22 06:45> NIH Stroke Scale Total NIH Stroke scale score: 0 Course <Alisson Cortes DO - Last Filed: 03/07/22 21:20> Orders Ordered: Discontinued Medications Dextrose (Dextrose 50 % In Water 25 Gm/50 Ml Syringe) 25 gm IV NOW ONE Stop: 03/02/22 17:32 Last Admin: 03/02/22 17:32 Dose: 25 gm Documented By: KF Sodium Chloride (Normal Saline 0.9%) 1,000 mls @ 150 mls/hr IV CONT MARTIN Metoprolol Succinate (Metoprolol Er 50 Mg Tablet) 50 mg PO NOW ONE Stop: 03/02/22 20:17 Last Admin: 03/02/22 20:40 Dose: 50 mg Documented By: AT Vital Signs Vital signs: Vital Signs - 8 hr 03/02/22 17:16 03/02/22 17:19 03/02/22 17:20 Temperature 99.3 F Pulse Rate 110 H 109 H Respiratory Rate 20 26 H Blood Pressure 175/100 H 175/100 H Pulse Oximetry 100 99 Oxygen Delivery Method Room Air Room Air 03/02/22 17:20 03/02/22 17:39 03/02/22 18:00 Temperature Pulse Rate 111 H 115 H 98 H Respiratory Rate 20 21 24 Blood Pressure Pulse Oximetry 99 Oxygen Delivery Method 03/02/22 18:02 03/02/22 18:02 03/02/22 18:15 Temperature Pulse Rate 102 H Respiratory Rate 23 Blood Pressure 155/84 H 183/77 H Pulse Oximetry Oxygen Delivery Method 03/02/22 18:15 03/02/22 18:24 03/02/22 18:24 Temperature Pulse Rate 107 H 104 H Respiratory Rate 22 20 Blood Pressure 166/76 H Pulse Oximetry Oxygen Delivery Method 03/02/22 18:30 03/02/22 19:00 03/02/22 19:30 Temperature Pulse Rate 101 H 100 H 101 H Respiratory Rate 23 19 19 Blood Pressure Pulse Oximetry Oxygen Delivery Method 03/02/22 20:00 03/02/22 20:23 03/02/22 20:23 Temperature Pulse Rate 101 H 102 H Respiratory Rate 22 22 Blood Pressure 173/82 H Pulse Oximetry Oxygen Delivery Method 03/02/22 20:30 03/02/22 21:00 Temperature Pulse Rate 121 H 101 H Respiratory Rate 29 H 20 Blood Pressure Pulse Oximetry Oxygen Delivery Method <George Mayers MD - Last Filed: 03/03/22 06:45> Course Course Narrative: 6:00 p.m.. Sign out from Dr. Cortes, will need to trend the glucose levels. Symptoms are related to hypoglycemia and not stroke. CT angiogram pending. Labs still pending but are reassuring. No neurology service intervention at this time and was angiogram abnormal. Patient the outside window of treatment if stroke. Onset appears to be 1:00 p.m.. Family at bedside and very supportive and translate for patient. Reviewed chest x-ray with Dr Cortes, and given lack of symptoms would not treat for pneumonia at this time. Laboratory studies reassuring Orders Ordered: Discontinued Medications Dextrose (Dextrose 50 % In Water 25 Gm/50 Ml Syringe) 25 gm IV NOW ONE Stop: 03/02/22 17:32 Last Admin: 03/02/22 17:32 Dose: 25 gm Documented By: KF Sodium Chloride (Normal Saline 0.9%) 1,000 mls @ 150 mls/hr IV CONT MARTIN Metoprolol Succinate (Metoprolol Er 50 Mg Tablet) 50 mg PO NOW ONE Stop: 03/02/22 20:17 Last Admin: 03/02/22 20:40 Dose: 50 mg Documented By: AT Reevaluation(s) Reevaluation #1: Updated patient regarding labs and treatment plan and they agree. Likely home have maintain glucose levels and hold on any diabetes medication today and tomorrow and resume on Friday. Fixrzlib-ot-kbe states he has been very aggressive with his diabetes medication and may have overdone it. Time: 19:00 Reevaluation #2: Reviewed results with family. They agree with treatment plan and discharged home. Will hold on take any diabetes medications this began in the resume on Friday. Blood pressure medication given here tonight. They will see family doctor next week for re-evaluation. Serial glucose levels reassuring. Patient has 8 here. Time: 21:11 Vital Signs Vital signs: Vital Signs - 8 hr 03/02/22 17:16 03/02/22 17:19 03/02/22 17:20 Temperature 99.3 F Pulse Rate 110 H 109 H Respiratory Rate 20 26 H Blood Pressure 175/100 H 175/100 H Pulse Oximetry 100 99 Oxygen Delivery Method Room Air Room Air 03/02/22 17:20 03/02/22 17:39 03/02/22 18:00 Temperature Pulse Rate 111 H 115 H 98 H Respiratory Rate 20 21 24 Blood Pressure Pulse Oximetry 99 Oxygen Delivery Method 03/02/22 18:02 03/02/22 18:02 03/02/22 18:15 Temperature Pulse Rate 102 H Respiratory Rate 23 Blood Pressure 155/84 H 183/77 H Pulse Oximetry Oxygen Delivery Method 03/02/22 18:15 03/02/22 18:24 03/02/22 18:24 Temperature Pulse Rate 107 H 104 H Respiratory Rate 22 20 Blood Pressure 166/76 H Pulse Oximetry Oxygen Delivery Method 03/02/22 18:30 03/02/22 19:00 03/02/22 19:30 Temperature Pulse Rate 101 H 100 H 101 H Respiratory Rate 23 19 19 Blood Pressure Pulse Oximetry Oxygen Delivery Method 03/02/22 20:00 03/02/22 20:23 03/02/22 20:23 Temperature Pulse Rate 101 H 102 H Respiratory Rate 22 22 Blood Pressure 173/82 H Pulse Oximetry Oxygen Delivery Method 03/02/22 20:30 03/02/22 21:00 Temperature Pulse Rate 121 H 101 H Respiratory Rate 29 H 20 Blood Pressure Pulse Oximetry Oxygen Delivery Method MDM - Neuro Symptoms/Deficit <Alisson Cortes DO - Last Filed: 03/07/22 21:20> Lab Data Result diagrams: 03/02/22 17:23 03/02/22 17:23 Labs: Lab Results 03/02/22 03/02/22 03/02/22 Range/Units 17:23 17:23 17:23 WBC 11.0 (4.5-11.0) X10^3/uL RBC 3.00 L (4.5-5.9) X10^6/uL Hgb 9.6 L (13.5-17.5) g/dL Hct 27.4 L (41-53) % MCV 91.2 (80-100) fL MCH 31.9 (26-34) PG MCHC 35.0 (30-36) % RDW 19.8 H (11.6-14.8) % Plt Count 387 (150-400) X10^3/uL Neut % (Auto) 84.6 H (50-75) % Lymph % (Auto) 4.3 L (25-40) % [place] % (Auto) 10.3 (3-14) % Eos % (Auto) 0.3 L (2-4) % Baso % (Auto) 0.5 (0-2) % Neut # (Auto) 9300 H (2806-6446) /uL Lymph # (Auto) 500 L (9655-9293) /uL [place] # (Auto) 1100 H (0-900) /uL Eos # (Auto) 0 (0-450) /uL Baso # (Auto) 100 (0-100) /uL PT 12.1 (10.1-12.7) SECONDS INR 1.1 (0.9-1.3) APTT 29 (26.4-36.2) SECONDS Sodium 140 (137-145) mmol/L Potassium 4.7 (3.4-5.1) mmol/L Chloride 109 H (98-107) mmol/L Carbon Dioxide 24 (22-32) mmol/L BUN 37 H (9-20) mg/dL Creatinine 1.31 H (0.66-1.25) mg/dL Estimated GFR 53 L (>60) mL/min BUN/Creatinine Ratio 28.2 H (6-22) Glucose 72 L (80-110) mg/dL Calcium 9.4 (8.4-10.2) mg/dL Total Bilirubin 0.4 (0.2-1.3) mg/dL AST 41 (17-59) IU/L ALT 19 (<50) IU/L Alkaline Phosphatase 51 (38-126) U/L Total Creatine Kinase 167 (55-170) U/L CK-MB (CK-2) < 0.22 (<2.37) ng/mL CK-MB (CK-2) Rel Index 0.1 L (1.5-5.0) % Troponin I 0.015 (0.01-0.034) ng/mL Total Protein 7.4 (6.3-8.2) g/dL Albumin 4.1 (3.5-5.0) g/dL Globulin 3.3 (1.7-4.1) g/dL Albumin/Globulin Ratio 1.2 (1.0-2.8) Urine Color Urine Appearance Urine pH (4.5-8.0) Ur Specific [place] (1.000-1.035) Urine Protein (Negative) Urine Glucose (UA) (Negative) g/dL Urine Ketones (NEGATIVE) Urine Occult Blood (Negative) Urine Nitrate (Negative) Urine Bilirubin (NEGATIVE) Urine Urobilinogen (0.2) E.U./dL Ur Leukocyte Esterase (NEGATIVE) Urine RBC (0-5/HPF) Urine WBC (0-5/HPF) Ur Squamous Epith Cells (0-5/HPF) Urine Bacteria (None) Hyaline Casts (None) Ur Culture Indicated? U Opiates 300ng/mL cut (Negative) Ur Oxycodone Screen (Negative) Urine Methadone Screen (Negative) Ur Barbiturates Screen (Negative) U Tricyclic Antidepress (Negative) Ur Phencyclidine Scrn (Negative) Ur Amphetamines Screen (Negative) U Methamphetamines Scrn (Negative) Ur MDMA Scrn (Ecstasy) (Negative) U Benzodiazepines Scrn (Negative) Urine Cocaine Screen (Negative) U Marijuana (THC) Screen (Negative) Ethyl Alcohol < 10 ( - 10) mg/dL SARS-CoV-2 (PCR) (Negative) 03/02/22 03/02/22 03/02/22 Range/Units 19:50 20:30 20:30 WBC (4.5-11.0) X10^3/uL RBC (4.5-5.9) X10^6/uL Hgb (13.5-17.5) g/dL Hct (41-53) % MCV (80-100) fL MCH (26-34) PG MCHC (30-36) % RDW (11.6-14.8) % Plt Count (150-400) X10^3/uL Neut % (Auto) (50-75) % Lymph % (Auto) (25-40) % [place] % (Auto) (3-14) % Eos % (Auto) (2-4) % Baso % (Auto) (0-2) % Neut # (Auto) (9096-0635) /uL Lymph # (Auto) (4948-1716) /uL [place] # (Auto) (0-900) /uL Eos # (Auto) (0-450) /uL Baso # (Auto) (0-100) /uL PT (10.1-12.7) SECONDS INR (0.9-1.3) APTT (26.4-36.2) SECONDS Sodium (137-145) mmol/L Potassium (3.4-5.1) mmol/L Chloride (98-107) mmol/L Carbon Dioxide (22-32) mmol/L BUN (9-20) mg/dL Creatinine (0.66-1.25) mg/dL Estimated GFR (>60) mL/min BUN/Creatinine Ratio (6-22) Glucose (80-110) mg/dL Calcium (8.4-10.2) mg/dL Total Bilirubin (0.2-1.3) mg/dL AST (17-59) IU/L ALT (<50) IU/L Alkaline Phosphatase (38-126) U/L Total Creatine Kinase (55-170) U/L CK-MB (CK-2) (<2.37) ng/mL CK-MB (CK-2) Rel Index (1.5-5.0) % Troponin I (0.01-0.034) ng/mL Total Protein (6.3-8.2) g/dL Albumin (3.5-5.0) g/dL Globulin (1.7-4.1) g/dL Albumin/Globulin Ratio (1.0-2.8) Urine Color Yellow Urine Appearance Clear Urine pH 5.0 (4.5-8.0) Ur Specific [place] 1.015 (1.000-1.035) Urine Protein Negative (Negative) Urine Glucose (UA) Negative (Negative) g/dL Urine Ketones Trace H (NEGATIVE) Urine Occult Blood Trace-lysed (Negative) Urine Nitrate Negative (Negative) Urine Bilirubin Negative (NEGATIVE) Urine Urobilinogen 0.2 (0.2) E.U./dL Ur Leukocyte Esterase Negative (NEGATIVE) Urine RBC 0-1/hpf (0-5/HPF) Urine WBC 0-1/hpf (0-5/HPF) Ur Squamous Epith Cells 0-1 /hpf (0-5/HPF) Urine Bacteria None seen (None) Hyaline Casts 1-5/lpf (None) Ur Culture Indicated? Cult not indicated U Opiates 300ng/mL cut Negative (Negative) Ur Oxycodone Screen Negative (Negative) Urine Methadone Screen Negative (Negative) Ur Barbiturates Screen Negative (Negative) U Tricyclic Antidepress Negative (Negative) Ur Phencyclidine Scrn Negative (Negative) Ur Amphetamines Screen Negative (Negative) U Methamphetamines Scrn Negative (Negative) Ur MDMA Scrn (Ecstasy) Negative (Negative) U Benzodiazepines Scrn Negative (Negative) Urine Cocaine Screen Negative (Negative) U Marijuana (THC) Screen Negative (Negative) Ethyl Alcohol ( - 10) mg/dL SARS-CoV-2 (PCR) Negative (Negative) Point of Care Testing Glucose POC [address] scan - head: Radiologist's Impression: [address] [address] [address] Scan Report Signed Patient: Jesus Haque MR#: [id number] : 1935 Acct:[id number] Age/Sex: 86 / M Date of Service: 03/02/22 Loc: ED Accession Number: [id number] ?? Procedure: CT Stroke Ordering Provider: Alisson Cortes D.O. PROCEDURE:? CT STROKE ? INDICATIONS:? Left sided weakness, dysarthria and facial droop.? Hypoglyce ? TECHNIQUE:? Noncontrast 4.5 mm thick angled axial sections acquired from the foramen magnum to the vertex, with coronal reformats.? For radiation dose reduction, the following was used:? automated exposure control, adjustment of mA and/or kV according to patient size.? ? COMPARISON:? None. ? FINDINGS:? Image quality:? Degraded by motion ? CSF spaces:? Basal cisterns are patent.? No extra-axial fluid collections.? Ventricles are normal in size and shape.? Moderate volume loss. ? Brain:? No midline shift.? No intracranial masses or hemorrhage. Periventricular white matter hypoattenuation, likely chronic small vessel disease.? There is some borges-white blurring in the right middle fossa, which may be artifact. ? Skull and face:? Calvarium and visualized facial bones are intact, without suspicious lesions.? ? Sinuses:? Prior sinus surgery, with opacification versus mass of the left maxillary sinus. ? IMPRESSION:? Images are degraded by motion.? No intraventricular hemorrhage. There is some borges-white blurring in the right middle fossa, which may be artifact.? Consider CTA and/or MRI for further evaluation. ? This study fulfills neurological imaging criteria for inclusion or exclusion of acute stroke therapies based on available published neurological imaging guidelines.? ? ? Dictated by: Janes Mejia M.D. on 03/02/2022 at 17:51 ? ? Approved by: Janes Mejia M.D. on 03/02/2022 at 17:55 CTA - brain/neck: Radiologist's Impression: [address] [address] [address] Scan Report Signed Patient: Jesus Haque MR#: [id number] : 1935 Acct:[id number] Age/Sex: 86 / M Date of Service: 03/02/22 Loc: ED Accession Number: [id number] ?? Procedure: CT angio head and neck Ordering Provider: Alisson Cortes D.O. PROCEDURE:? CT ANGIO HEAD AND NECK ? INDICATIONS:? Left sided weakness, dysarthria and facial droop.? Hypoglyce ? TECHNIQUE:? After the administration of intravenous contrast, 1 mm thick sections acquired from the aortic arch through the [place] of [place].? Post-contrast 4.5 mm thick sections then re-acquired from the foramen magnum to the vertex.? 3-dimensional icqmycx-cupxdwyff-jkhdhyqiwj (MIP) and/or volume rendering reformats were acquired of the central intracranial vasculature and neck separately. For radiation dose reduction, the following was used:? automated exposure control, adjustment of mA and/or kV according to patient size.? ? COMPARISON:? None. ? FINDINGS:? Image quality:? Excellent.? ? HEAD CT ANGIOGRAPHY:? Anterior circulation:? Mild cavernous carotid atherosclerotic calcifications.? The flow within the paired anterior cerebral arteries is normal and symmetric.? The flow within the middle cerebral arteries is normal and symmetric.? The anterior communicating artery is seen.? No aneurysms are seen.? ? Posterior circulation:? Visualized portions of the vertebral arteries demonstrate normal caliber, and join to form a normal appearing basilar artery.? Mild left vertebral atherosclerotic calcifications.? Flow within the posterior cerebral arteries is normal and symmetric.? No aneurysms are seen.? supply of the left CELL STRIPPER FINAL. ? Dural venous sinuses are grossly patent. ? NECK CT ANGIOGRAPHY:? Carotid system:? The great vessels demonstrate a conventional anatomy as they arise from the aortic arch.? The origins of the common carotid arteries appear patent.? The common carotid arteries demonstrate normal caliber and courses.? The bifurcation regions are both widely patent.? The internal carotid arteries demonstrate normal calibers and courses.? ? Posterior circulation:? Mild narrowing of the bilateral vertebral artery origins.? The more superior extracranial portions of both vertebral arteries also demonstrate normal courses and calibers.? They join to form a normal appearing basilar artery.? ? Soft tissues:? Complete opacification versus mass of the left maxillary sinus.? Prior sinus surgery.? Maxillary hyperostosis. ? Bones:? No suspicious bony lesions.? Pkxd-qi-uoklcxcz spondylosis.? Straightening normal cervical lordosis. ? ? IMPRESSION:? No stenosis common large vessel occlusion, dissection, or aneurysm identified. Consider MRI if ischemia is still a concern. ? Complete opacification versus mass of the left maxillary sinus.? There is prior sinus surgery.? Correlate with history and direct visualization. ? Any quantitative measurements of stenosis were performed using NASCET criteria.? ? ? Dictated by: Janes Mejia M.D. on 03/02/2022 at 18:22 ? ? Approved by: Janes Mejia M.D. on 03/02/2022 at 18:30?? Chest x-ray: Radiologist's Impression: [address] [address] XRay Report Signed Patient: Jesus Haque MR#: [id number] : 1935 Acct:[id number] Age/Sex: 86 / M Date of Service: 03/02/22 Loc: ED Accession Number: [id number] ?? Procedure: XR chest 1V Ordering Provider: Alisson Cortes D.O. PROCEDURE:? XR CHEST 1V ? INDICATIONS:? weakness left ? TECHNIQUE:? One view of the chest was acquired.? ? COMPARISON:? [facility], CR, XR CHEST 2V, 05/16/2020, 12:55. ? FINDINGS:? ? Surgical changes and devices:? None.? ? Lungs and pleura:? Lung volumes are lower.? Left greater than right mid and lower lung opacities.? No pleural effusion. ? Mediastinum:? Mediastinal contours appear normal.? Heart size is normal.? ? Bones and chest wall:? No suspicious bony lesions.? Overlying soft tissues appear unremarkable.? ? IMPRESSION:? Left greater than right mid and lower lung opacities could represent infectious or inflammatory airspace disease.? There may be superimposed atelectasis.? Consider follow-up imaging to reassess for resolution.? ? ? Dictated by: Janes Mejia M.D. on 03/02/2022 at 18:37 ? ? Approved by: Jnaes Mejia M.D. on 03/02/2022 at 18:38?? ECG Data Attestation: I personally reviewed and interpreted this ECG as follows: Prior ECG tracings: not available for review Interpretation: Sinus rhythm left axis deviation, right bundle-branch. Rate of 100 CA 180 QRS of 114 QTC of 472. No acute ST changes appreciated. Patient does not have any prior EKGs from comparison but his EMR problem list does note he has known bundle-branch block. MDM Narrative Medical decision making narrative: This is an 86-year-old male who presents with hypoglycemia and left-sided deficits. Patient's deficits resolved after glucose and are not present upon arrival. Based on onset patient would be outside of tPA window if his symptoms had not resolved. Initial head CT is negative, CT angio does not show any stenosis, there is some opacification of the maxillary sinus likely incidentally found and chest x-ray shows some mid field opacities, patient has stable baseline anemia with hemoglobin 9.6, normal platelets, no elevation or leukocytosis. Creatinine today is 1.31 actually improved from June of 2021 when it was 1.74, otherwise fairly normal electrolytes with a BUN slightly elevated. Glucose on serum was 72. During his stay on recheck was 69 was given another dose of dextrose and oral juice. Patient's troponin is negative, no LFT changes. Negative ETOH. COVID swab and urinalysis have not been collected yet. Updated patient and family on findings so far and suspect this is more hypoglycemic episode. If he is able to maintain his glucose here in the department without any further drops can potentially be discharged home but if has recurrent drops or new symptoms will need observation overnight. Patient was signed out to Dr. Mayers for observation regarding his glucose before final decision is made and pending UA and COVID swab. Stroke Core Measures Exclusion Criteria TPA in CVA: Symptom Onset >3 or 4.5 Hours <George Mayers MD - Last Filed: 03/03/22 06:45> Differential Diagnosis Differential diagnosis: Likely cerebrovascular accident, transient cerebral ischemia and other (Hypoglycemia) Lab Data Labs: Lab Results 03/02/22 03/02/22 03/02/22 Range/Units 17:23 17:23 17:23 WBC 11.0 (4.5-11.0) X10^3/uL RBC 3.00 L (4.5-5.9) X10^6/uL Hgb 9.6 L (13.5-17.5) g/dL Hct 27.4 L (41-53) % MCV 91.2 (80-100) fL MCH 31.9 (26-34) PG MCHC 35.0 (30-36) % RDW 19.8 H (11.6-14.8) % Plt Count 387 (150-400) X10^3/uL Neut % (Auto) 84.6 H (50-75) % Lymph % (Auto) 4.3 L (25-40) % [place] % (Auto) 10.3 (3-14) % Eos % (Auto) 0.3 L (2-4) % Baso % (Auto) 0.5 (0-2) % Neut # (Auto) 9300 H (6717-8643) /uL Lymph # (Auto) 500 L (1270-7910) /uL [place] # (Auto) 1100 H (0-900) /uL Eos # (Auto) 0 (0-450) /uL Baso # (Auto) 100 (0-100) /uL PT 12.1 (10.1-12.7) SECONDS INR 1.1 (0.9-1.3) APTT 29 (26.4-36.2) SECONDS Sodium 140 (137-145) mmol/L Potassium 4.7 (3.4-5.1) mmol/L Chloride 109 H (98-107) mmol/L Carbon Dioxide 24 (22-32) mmol/L BUN 37 H (9-20) mg/dL Creatinine 1.31 H (0.66-1.25) mg/dL Estimated GFR 53 L (>60) mL/min BUN/Creatinine Ratio 28.2 H (6-22) Glucose 72 L (80-110) mg/dL Calcium 9.4 (8.4-10.2) mg/dL Total Bilirubin 0.4 (0.2-1.3) mg/dL AST 41 (17-59) IU/L ALT 19 (<50) IU/L Alkaline Phosphatase 51 (38-126) U/L Total Creatine Kinase 167 (55-170) U/L CK-MB (CK-2) < 0.22 (<2.37) ng/mL CK-MB (CK-2) Rel Index 0.1 L (1.5-5.0) % Troponin I 0.015 (0.01-0.034) ng/mL Total Protein 7.4 (6.3-8.2) g/dL Albumin 4.1 (3.5-5.0) g/dL Globulin 3.3 (1.7-4.1) g/dL Albumin/Globulin Ratio 1.2 (1.0-2.8) Urine Color Urine Appearance Urine pH (4.5-8.0) Ur Specific [place] (1.000-1.035) Urine Protein (Negative) Urine Glucose (UA) (Negative) g/dL Urine Ketones (NEGATIVE) Urine Occult Blood (Negative) Urine Nitrate (Negative) Urine Bilirubin (NEGATIVE) Urine Urobilinogen (0.2) E.U./dL Ur Leukocyte Esterase (NEGATIVE) Urine RBC (0-5/HPF) Urine WBC (0-5/HPF) Ur Squamous Epith Cells (0-5/HPF) Urine Bacteria (None) Hyaline Casts (None) Ur Culture Indicated? U Opiates 300ng/mL cut (Negative) Ur Oxycodone Screen (Negative) Urine Methadone Screen (Negative) Ur Barbiturates Screen (Negative) U Tricyclic Antidepress (Negative) Ur Phencyclidine Scrn (Negative) Ur Amphetamines Screen (Negative) U Methamphetamines Scrn (Negative) Ur MDMA Scrn (Ecstasy) (Negative) U Benzodiazepines Scrn (Negative) Urine Cocaine Screen (Negative) U Marijuana (THC) Screen (Negative) Ethyl Alcohol < 10 ( - 10) mg/dL SARS-CoV-2 (PCR) (Negative) 03/02/22 03/02/22 03/02/22 Range/Units 19:50 20:30 20:30 WBC (4.5-11.0) X10^3/uL RBC (4.5-5.9) X10^6/uL Hgb (13.5-17.5) g/dL Hct (41-53) % MCV (80-100) fL MCH (26-34) PG MCHC (30-36) % RDW (11.6-14.8) % Plt Count (150-400) X10^3/uL Neut % (Auto) (50-75) % Lymph % (Auto) (25-40) % [place] % (Auto) (3-14) % Eos % (Auto) (2-4) % Baso % (Auto) (0-2) % Neut # (Auto) (6662-5951) /uL Lymph # (Auto) (6309-1050) /uL [place] # (Auto) (0-900) /uL Eos # (Auto) (0-450) /uL Baso # (Auto) (0-100) /uL PT (10.1-12.7) SECONDS INR (0.9-1.3) APTT (26.4-36.2) SECONDS Sodium (137-145) mmol/L Potassium (3.4-5.1) mmol/L Chloride (98-107) mmol/L Carbon Dioxide (22-32) mmol/L BUN (9-20) mg/dL Creatinine (0.66-1.25) mg/dL Estimated GFR (>60) mL/min BUN/Creatinine Ratio (6-22) Glucose (80-110) mg/dL Calcium (8.4-10.2) mg/dL Total Bilirubin (0.2-1.3) mg/dL AST (17-59) IU/L ALT (<50) IU/L Alkaline Phosphatase (38-126) U/L Total Creatine Kinase (55-170) U/L CK-MB (CK-2) (<2.37) ng/mL CK-MB (CK-2) Rel Index (1.5-5.0) % Troponin I (0.01-0.034) ng/mL Total Protein (6.3-8.2) g/dL Albumin (3.5-5.0) g/dL Globulin (1.7-4.1) g/dL Albumin/Globulin Ratio (1.0-2.8) Urine Color Yellow Urine Appearance Clear Urine pH 5.0 (4.5-8.0) Ur Specific [place] 1.015 (1.000-1.035) Urine Protein Negative (Negative) Urine Glucose (UA) Negative (Negative) g/dL Urine Ketones Trace H (NEGATIVE) Urine Occult Blood Trace-lysed (Negative) Urine Nitrate Negative (Negative) Urine Bilirubin Negative (NEGATIVE) Urine Urobilinogen 0.2 (0.2) E.U./dL Ur Leukocyte Esterase Negative (NEGATIVE) Urine RBC 0-1/hpf (0-5/HPF) Urine WBC 0-1/hpf (0-5/HPF) Ur Squamous Epith Cells 0-1 /hpf (0-5/HPF) Urine Bacteria None seen (None) Hyaline Casts 1-5/lpf (None) Ur Culture Indicated? Cult not indicated U Opiates 300ng/mL cut Negative (Negative) Ur Oxycodone Screen Negative (Negative) Urine Methadone Screen Negative (Negative) Ur Barbiturates Screen Negative (Negative) U Tricyclic Antidepress Negative (Negative) Ur Phencyclidine Scrn Negative (Negative) Ur Amphetamines Screen Negative (Negative) U Methamphetamines Scrn Negative (Negative) Ur MDMA Scrn (Ecstasy) Negative (Negative) U Benzodiazepines Scrn Negative (Negative) Urine Cocaine Screen Negative (Negative) U Marijuana (THC) Screen Negative (Negative) Ethyl Alcohol ( - 10) mg/dL SARS-CoV-2 (PCR) Negative (Negative) Point of Care Testing Glucose POC 98 MDM Narrative Medical decision making narrative: This is an 86-year-old male who presents with hypoglycemia and left-sided deficits. Patient's deficits resolved after glucose and are not present upon arrival. Based on onset patient would be outside of tPA window if his symptoms had not resolved. Initial head CT is negative, CT angio does not show any stenosis, there is some opacification of the maxillary sinus likely incidentally found and chest x-ray shows some mid field opacities, patient has stable baseline anemia with hemoglobin 9.6, normal platelets, no elevation or leukocytosis. Creatinine today is 1.31 actually improved from June of 2021 when it was 1.74, otherwise fairly normal electrolytes with a BUN slightly elevated. Glucose on serum was 72. During his stay on recheck was 69 was given another dose of dextrose and oral juice. Patient's troponin is negative, no LFT changes. Negative ETOH. COVID swab and urinalysis have not been collected yet. Updated patient and family on findings so far and suspect this is more hypoglycemic episode. If he is able to maintain his glucose here in the department without any further drops can potentially be discharged home but if has recurrent drops or new symptoms will need observation overnight. Patient was signed out to Dr. Mayers for observation regarding his glucose before final decision is made and pending UA and COVID swab. Appropriate for discharge home. Symptoms resolved with correcting patient's glucose levels and has maintained neurologically intact. Serial glucose levels has been reassuring. Patient has eaten here. Exam and imaging otherwise reassuring. Discharge Plan Departure Patient Disposition: Home Clinical Impression: Hypoglycemia Instructions: DI for Hypoglycemia Activity Restrictions/Additional Instructions: Return if worsening questions or concerns. Be sure to hold/not take your diabetes medication today and tomorrow and may resume on Friday. May continue diabetic diet. See your family doctor next week for re-evaluation. Keep well hydrated. Be sure to continue glucose levels/fingersticks in the morning/noon and evening. Prescriptions: No Action trazodone 50 mg tablet 100 mg PO BEDTIME Qty: 180 0RF dutasteride 0.5 mg capsule 0.5 mg PO DAILY Qty: 90 1RF tamsulosin 0.4 mg capsule 0.4 mg PO DAILY Qty: 90 1RF repaglinide 1 mg tablet 1 mg PO BID Qty: 180 3RF Rx Instructions: administer within 30 minutes of a meal or snack metformin 850 mg tablet 850 mg PO BID Qty: 180 3RF metoprolol succinate 50 mg tablet extended release 24 hr 50 mg PO DAILY Qty: 90 3RF glimepiride 2 mg tablet 2 mg PO BID Qty: 180 3RF Referrals: Dominguez Aden MD [Primary Care Provider] - Visit Report Forms: Patient Portal/API
[2022-03-02 17:31] LABS: Add Manual Diff / Slide Review NO; Basophils Absolute Auto 100 /uL (0-100); Basophils Percent Auto 0.5 % (0-2); Eosinophils Absolute Auto 0 /uL (0-450); Eosinophils Percent Auto 0.3 % (2-4); Hematocrit 27.4 % (41-53); Hemoglobin 9.6 g/dL (13.5-17.5); Lymphocytes Absolute Auto 500 /uL (1100-4500); Lymphocytes Percent Auto 4.3 % (25-40); Mean Corpuscular Hemoglobin 31.9 PG (26-34); Mean Corpuscular Volume 91.2 fL (80-100); Monocytes Absolute Auto 1100 /uL (0-900); Monocytes Percent Auto 10.3 % (3-14); Neutrophils Absolute Auto 9300 /uL (1500-7000); Neutrophils Percent Auto 84.6 % (50-75); Platelet Count 387 X10^3/uL (150-400); Red Cell Distribution Width 19.8 % (11.6-14.8)
[2022-03-02] MEDS: DEXTROSE 50 % IN WATER 25 GM/50 ML SYRINGE IV (17:32)
[2022-03-02 17:42] LABS: INR 1.1 (0.9-1.3); Prothrombin Time 12.1 SECONDS (10.1-12.7)
[2022-03-02 17:45] LABS: PTT Partial Thromboplastin Tim 29 SECONDS (26.4-36.2)
--- NOTE | 2022-03-02 17:45 | PC.NURSE ---
Family at bedside, report pt woke with left side facial droop and unable to speak. Pt speaking at time of arrival, speaks English. Dr. Cortes at bedside assessing pt with interpretation.
[2022-03-02 17:46] LABS: Alanine Aminotransferase 19 IU/L (<50); Albumin 4.1 g/dL (3.5-5.0); Albumin Globulin Ratio 1.2 (1.0-2.8); Alkaline Phosphatase 51 U/L (38-126); Aspartate Aminotransferase 41 IU/L (17-59); BUN Creatinine Ratio 28.2 (6-22); Bilirubin Total 0.4 mg/dL (0.2-1.3); Blood Urea Nitrogen 37 mg/dL (9-20); Calcium 9.4 mg/dL (8.4-10.2); Carbon Dioxide 24 mmol/L (22-32); Chloride 109 mmol/L (98-107); Creatine Kinase 167 U/L (55-170); Estimated Glomerular Filt Rate 53 mL/min (>60); Globulin 3.3 g/dL (1.7-4.1); Glucose 72 mg/dL (80-110); HEMOLYSIS < 15 (0-50); Potassium 4.7 mmol/L (3.4-5.1); Sodium 140 mmol/L (137-145); Total Protein 7.4 g/dL (6.3-8.2)
[2022-03-02 17:57] LABS: Ethanol (ETOH) < 10 mg/dL
[2022-03-02 17:58] LABS: Troponin I 0.015 ng/mL (0.01-0.034)
[2022-03-02 18:02] LABS: CKMB % Relative Index 0.1 % (1.5-5.0); Creatine Kinase MB < 0.22 ng/mL (<2.37)
[2022-03-02 20:23] LABS: COVID19 -Nasal RAPID Negative (Negative)
--- NOTE | 2022-03-02 20:24 | PC.NURSE ---
Pt provided tuna sandwich, yogurt, and water.
[2022-03-02 20:39] LABS: Appearance Urine UA CLEAR; Bilirubin Urine UA NEGATIVE (NEGATIVE); Color Urine UA YELLOW; Glucose Urine UA NEGATIVE (Negative); Ketones Urine UA TRACE (NEGATIVE); Leukocyte Esterase Urine UA NEGATIVE (NEGATIVE); Nitrite Urine UA NEGATIVE (Negative); Occult Blood Urine UA TRACE-LYSED (Negative); Protein Urine UA NEGATIVE (Negative); Specific Gravity Urine UA 1.015 (1.000-1.035); Urobilinogen Urine UA 0.2 E.U./dL (0.2)
[2022-03-02] MEDS: METOPROLOL ER 50 MG TABLET PO (20:40)
[2022-03-02 20:49] LABS: Bacteria Urine None Seen; Culture Indicated Urine Cult Not Indicated; Hyaline Casts Urine 1-5/LPF; RBC Urine 0-1/HPF (0-5/HPF); Squamous Epithelial Cell Urine 0-1 /HPF (0-5/HPF); WBC Urine 0-1/HPF (0-5/HPF)
[2022-03-02 20:50] LABS: UR Morphine/Opiate cutoff 300 Negative (Negative); Ur Creatinine Normal (Normal); Ur Specific Gravity Normal (Normal); Urine Amphetamines Negative (Negative); Urine Barbiturates Negative (Negative); Urine Benzodiazepines Negative (Negative); Urine Cocaine Negative (Negative); Urine MDMA Negative (Negative); Urine Methadone Negative (Negative); Urine Methamphetamines Negative (Negative); Urine Oxycodone Negative (Negative); Urine Phencyclidine Negative (Negative); Urine Tetrahydrocannabinol Negative (Negative); Urine Tricyclic Antidepressant Negative (Negative); Urine pH Normal (Normal)
== END 2022-03-02 21:36 | disposition home or self-care (01) ==
PROVIDERS: Emergency Medicine; Emergency Provider Emergency Medicine; PCP Internal Medicine
DX: E11.649 Type 2 diabetes mellitus with hypoglycemia without coma (principal); R79.89 Other specified abnormal findings of blood chemistry; R07.9 Chest pain, unspecified; Z20.822 Contact with and (suspected) exposure to COVID-19
CPT/HCPCS: 36415; 70450; 70496; 70498; 71045; 80053; 80305; 80320; 81001; 82550; 82553; 82962; 84484; 85025; 85610; 85730; 87635; 93005; 99284; 99285; C9803

== ENCOUNTER → 2022-04-05 15:13 | Outpatient (CLI) | payer OTHER, SELFPAY ==
[2022-04-05 16:16] LABS: Add Manual Diff / Slide Review NO; Alanine Aminotransferase 28 IU/L (<50); Albumin Globulin Ratio 1.2 (1.0-2.8); Alkaline Phosphatase 59 U/L (38-126); Aspartate Aminotransferase 26 IU/L (17-59); BUN Creatinine Ratio 18.6 (6-22); Basophils Absolute Auto 100 /uL (0-100); Basophils Percent Auto 0.7 % (0-2); Bilirubin Total 0.3 mg/dL (0.2-1.3); Blood Urea Nitrogen 35 mg/dL (9-20); Calcium 9.1 mg/dL (8.4-10.2); Carbon Dioxide 23 mmol/L (22-32); Chloride 104 mmol/L (98-107); Eosinophils Absolute Auto 100 /uL (0-450); Eosinophils Percent Auto 1.2 % (2-4); Estimated Glomerular Filt Rate 34 mL/min (>60); Globulin 3.4 g/dL (1.7-4.1); Glucose 208 mg/dL (80-110); HEMOLYSIS < 15 (0-50); Hematocrit 28.7 % (41-53); Hemoglobin 9.7 g/dL (13.5-17.5); Hemoglobin A1C% w Est Avg Glu 6.3 % (4.0-6.0); Lymphocytes Absolute Auto 800 /uL (1100-4500); Lymphocytes Percent Auto 10.3 % (25-40); Mean Corpuscular HGB Conc 33.8 % (30-36); Mean Corpuscular Hemoglobin 31.2 PG (26-34); Mean Corpuscular Volume 92.4 fL (80-100); Monocytes Absolute Auto 800 /uL (0-900); Monocytes Percent Auto 11.1 % (3-14); Neutrophils Absolute Auto 5800 /uL (1500-7000); Neutrophils Percent Auto 76.7 % (50-75); Platelet Count 391 X10^3/uL (150-400); Potassium 4.9 mmol/L (3.4-5.1); Red Blood Cell Count 3.11 X10^6/uL (4.5-5.9); Red Cell Distribution Width 19.9 % (11.6-14.8); Sodium 139 mmol/L (137-145); Total Protein 7.4 g/dL (6.3-8.2); White Blood Cell Count 7.6 X10^3/uL (4.5-11.0)
[2022-04-05 17:39] LABS: Creatinine Urine Random 57.5 mg/dL
[2022-04-05 17:43] LABS: Microalbumi Creatinin Ratio Ur 19.1 ug/mg CR (<30); Microalbumin Urine Random 1.1 mg/dL (0-1.6)
== END ==
PROVIDERS: PCP Internal Medicine; Referring Provider Internal Medicine; Visit Provider Internal Medicine
DX: E11.9 Type 2 diabetes mellitus without complications (principal); D63.8 Anemia in other chronic diseases classified elsewhere; I10 Essential (primary) hypertension; N13.8 Other obstructive and reflux uropathy; N40.1 Benign prostatic hyperplasia with lower urinary tract symptoms
CPT/HCPCS: 36415; 80053; 82043; 82570; 83036; 85025

== ENCOUNTER → 2023-06-12 10:41 | Outpatient (CLI) | payer OTHER, SELFPAY ==
[2023-06-12 11:35] LABS: Add Manual Diff / Slide Review NO; Basophils Absolute Auto 100 /uL (0-100); Basophils Percent Auto 0.8 % (0-2); Eosinophils Absolute Auto 200 /uL (0-450); Eosinophils Percent Auto 2.3 % (2-4); Hematocrit 26.1 % (41-53); Lymphocytes Absolute Auto 900 /uL (1100-4500); Lymphocytes Percent Auto 13.7 % (25-40); Mean Corpuscular HGB Conc 34.5 % (30-36); Mean Corpuscular Hemoglobin 31.5 PG (26-34); Mean Corpuscular Volume 91.1 fL (80-100); Monocytes Absolute Auto 700 /uL (0-900); Monocytes Percent Auto 11.6 % (3-14); Neutrophils Absolute Auto 4600 /uL (1500-7000); Neutrophils Percent Auto 71.6 % (50-75); Platelet Count 317 X10^3/uL (150-400); Red Blood Cell Count 2.86 X10^6/uL (4.5-5.9); Red Cell Distribution Width 18.5 % (11.6-14.8); White Blood Cell Count 6.5 X10^3/uL (4.5-11.0)
[2023-06-12 11:54] LABS: Hemoglobin A1C% w Est Avg Glu 8.5 % (4.0-6.0)
[2023-06-12 12:17] LABS: Alanine Aminotransferase 19 IU/L (<50); Albumin 3.6 g/dL (3.5-5.0); Albumin Globulin Ratio 1.1 (1.0-2.8); Alkaline Phosphatase 76 U/L (38-126); Aspartate Aminotransferase 25 IU/L (17-59); BUN Creatinine Ratio 20.2 (6-22); Bilirubin Total 0.4 mg/dL (0.2-1.3); Blood Urea Nitrogen 38 mg/dL (9-20); Carbon Dioxide 21 mmol/L (22-32); Chloride 106 mmol/L (98-107); Estimated Glomerular Filt Rate 34 mL/min (>60); Globulin 3.3 g/dL (1.7-4.1); Glucose 151 mg/dL (80-110); HEMOLYSIS < 15 (0-50); Potassium 5.2 mmol/L (3.4-5.1); Sodium 137 mmol/L (137-145); Total Protein 6.9 g/dL (6.3-8.2)
== END ==
PROVIDERS: PCP Internal Medicine; Referring Provider Internal Medicine; Visit Provider Internal Medicine
DX: D64.9 Anemia, unspecified (principal); I10 Essential (primary) hypertension; E11.9 Type 2 diabetes mellitus without complications; N18.32 Chronic kidney disease, stage 3b
CPT/HCPCS: 36415; 80053; 83036; 85025